=== PATIENT | male | born 1975 | race Caucasian/White ===

== ENCOUNTER 2016-09-29 12:27 | Inpatient (IN) | payer OTHER ==
[~2016-09-29] VITALS: Ht 177.8 cm; Wt 70.4 kg
--- NOTE | ~2016-09-29 | EKG ---
[place], [place] ELECTROCARDIOGRAM REPORT NAME: VINI BAXTER UNIT #: [id number] ROOM: 528 DOCTOR: HILDA BULLARD MD BIRTHDATE: [birth year] DOS: 09/29/2016 TIME: 2105. FINDINGS: 1. Sinus rhythm. 2. Normal electrocardiogram. HILDA BULLARD MD CM:EKGRPT:ELECTROCARDIOGRAM REPORT [id number] HILDA BULLARD MD
[~2016-09-29 12:27] MED LIST: ATARAX,VISTARIL50 MG PO; KROGER NIC21 MG/24 H T; METHOCARBAMOL750 M1 PO; ONDANSETRON HYDR4 M1 PO; THERA TABS1 TAB PO; TRAZODONE50 MG PO
[2016-09-29 13:11] VITALS: BP 129/79
[2016-09-29 15:11] LABS: BASO % 0.5 % (0.0-1.0); EOS # 0.3 10*3/uL (0.0-0.4); EOS % 4.6 % (1.0-4.0); HEMATOCRIT 49.6 % (42.0-52.0); HEMOGLOBIN 16.8 g/dl (14.0-18.0); LYMPH # 2.4 10*3/uL (1.3-4.4); LYMPH % 32.8 % (27.0-41.0); MEAN CELL VOLUME 92.7 fl (80.0-94.0); MEAN CORPUSCULAR HGB 31.4 pg (27.0-31.0); MEAN CORPUSCULAR HGB CONC 33.9 g/dl (33.0-37.0); MEAN PLATELET VOLUME 9.9 fl (9.6-12.3); MONO # 0.5 10*3/uL (0.1-1.0); MONO % 6.4 % (3.0-9.0); NEUT # 4.1 10*3/uL (2.3-7.9); NEUT % 55.4 % (47.0-73.0); PLATELET COUNT AUTOMATED 162 10*3/uL (130-400); RED BLOOD COUNT 5.35 10*6/uL (4.50-5.90); RED CELL DISTRI WIDTH 13.5 % (0-14.5); WHITE BLOOD COUNT 7.5 10*3/uL (4.8-10.8)
[2016-09-29 15:23] LABS: PROTHROMBIN TIME 11.1 SECONDS (9.0-12.4)
[2016-09-29 15:25] LABS: ALBUMIN 3.3 gm/dl (3.1-4.5); ALKALINE PHOSPHATASE 96 U/L (45-117); BILIRUBIN, TOTAL 0.7 mg/dl (0.2-1.0); BUN 17 mg/dl (7-24); CARBON DIOXIDE 31 mmol/L (21-32); CHLORIDE 102 mmol/L (98-107); EST GLOM FILT AFRICAN AMERICAN > 60 ml/min; GLUCOSE 159 mg/dL (65-99); POTASSIUM 4.5 mmol/L (3.5-5.1); SGOT/AST 167 IU/L (3-35); SGPT/ALT 342 U/L (12-78); SODIUM 137 mmol/L (136-145)
[2016-09-29 15:50] LABS: BILIRUBIN NEGATIVE (NEGATIVE); BLOOD TRACE-INTACT (NEGATIVE); CLARITY SL CLOUDY (CLEAR); COLOR YELLOW (YELLOW); GLUCOSE NEGATIVE (NEGATIVE); KETONE TRACE (NEGATIVE); LEUKO ESTERASE NEGATIVE (NEGATIVE); NITRITE NEGATIVE (NEGATIVE); PROTEIN 2+ (NEGATIVE); SPECIFIC GRAVITY >= 1.030 (1.005-1.030); UROBILINOGEN 0.2 E.U./dl (0.2-1.0)
[2016-09-29 15:57] LABS: WBC 0-2 wbc/hpf (0-5)
[2016-09-29 15:58] LABS: BACTERIA 2+; EPITHELIAL CELLS 0-2; URINE REFLEX COMMENT YES (NO)
[2016-09-29 16:00] VITALS: BP 118/63
[2016-09-29 16:02] LABS: URINE COCAINE > 300 (300ng/ml)
[2016-09-29 16:10] LABS: URINE AMPHETAMINES < 1000 (1000ng/ml); URINE BARBITURATES < 200 (200ng/ml)
[2016-09-29 20:00] VITALS: BP 120/55
[2016-09-30] VITALS: BP 112/71
[2016-09-30 04:00] VITALS: BP 118/78
[2016-09-30 08:00] VITALS: BP 101/59
[2016-09-30 12:00] VITALS: BP 108/47
[2016-09-30 16:00] VITALS: BP 115/67
[2016-09-30 20:19] VITALS: BP 110/54
[2016-10-01] VITALS: BP 106/64; BP 127/75
[2016-10-01 08:00] VITALS: BP 106/58
[2016-10-01 12:00] VITALS: BP 130/81
[2016-10-01 16:00] VITALS: BP 125/72
[2016-10-01 20:00] VITALS: BP 130/82
[2016-10-02] VITALS: BP 115/57; BP 127/75
[2016-10-02 06:59] LABS: BASO # 0.1 10*3/uL (0.0-0.1); BASO % 1.4 % (0.0-1.0); EOS # 0.3 10*3/uL (0.0-0.4); EOS % 6.5 % (1.0-4.0); HEMATOCRIT 49.7 % (42.0-52.0); HEMOGLOBIN 16.8 g/dl (14.0-18.0); LYMPH # 2.2 10*3/uL (1.3-4.4); MEAN CELL VOLUME 91.7 fl (80.0-94.0); MEAN CORPUSCULAR HGB CONC 33.8 g/dl (33.0-37.0); MEAN PLATELET VOLUME 10.5 fl (9.6-12.3); MONO # 0.8 10*3/uL (0.1-1.0); MONO % 15.4 % (3.0-9.0); NEUT # 1.6 10*3/uL (2.3-7.9); NEUT % 32.5 % (47.0-73.0); PLATELET COUNT AUTOMATED 144 10*3/uL (130-400); RED BLOOD COUNT 5.42 10*6/uL (4.50-5.90); RED CELL DISTRI WIDTH 13.2 % (0-14.5)
[2016-10-02 07:34] LABS: EST GLOM FILT AFRICAN AMERICAN > 60 ml/min
[2016-10-02 08:00] VITALS: BP 130/74
[2016-10-02] MEDS ORDERED: CARBIDOPA/LEVOD1 TA1 PO (09:36)
[2016-10-02] MEDS ORDERED: ATARAX,VISTARIL50 MG PO (09:36)
[2016-10-02] MEDS ORDERED: ZOFRAN 4 MG ED2 TAB PO (09:36)
== END 2016-10-02 11:31 | disposition home or self-care (01) | DRG 897 ==
LOC: 5E 12:27
PROVIDERS: Internal Medicine Hospice and Palliative Medicine
DX: F11.23 Opioid dependence with withdrawal (principal); E44.0 Moderate protein-calorie malnutrition; F41.9 Anxiety disorder, unspecified; R73.9 Hyperglycemia, unspecified; B18.2 Chronic viral hepatitis C; F17.210 Nicotine dependence, cigarettes, uncomplicated; F14.10 Cocaine abuse, uncomplicated; G25.81 Restless legs syndrome; Z71.6 Tobacco abuse counseling; Z83.3 Family history of diabetes mellitus; Z80.1 Family history of malignant neoplasm of trachea, bronchus and lung; Z68.22 Body mass index [BMI] 22.0-22.9, adult

== ENCOUNTER 2019-07-21 13:41 | Inpatient (IN) | payer OTHER ==
[~2019-07-21] VITALS: Ht 177.8 cm; Wt 65.1 kg
[~2019-07-21 13:41] MED LIST changes: +CARBIDOPA/LEVOD1 TA1 PO; +ZOFRAN 4 MG ED2 TAB PO
--- NOTE | 2019-07-21 14:00 | NUR ---
44 year old MALE admitted to room # 530 for stabilization. Reports an addiction to IV HEROIN last used 24 hours prior to admission. Compliant with admission procedure. Patient denies any anxiety, but is unable to sit still, taps toes to floor continuously, looks about room, unable to focus eyes on nurse during interview. See assessment forms for additional information about patient status.
--- NOTE | 2019-07-21 14:22 | NUR ---
PATIENT MEETS [facility]. CINA=18. PATIENT WANTS TO FOLLOW UP WITH A [facility] CLINIC AT [facility] IN [place]. [place] STAFF WILL SET UP TRANSPORTATION THROUGH HIS INSURANCE ON Wednesday. PATEL RODRIGUEZ B.A. HUMAN RESOURCES COMPLIANCE MANAGER
[2019-07-21 14:44] VITALS: BP 137/98
--- NOTE | 2019-07-21 15:21 | NUR ---
C/O NICOTINE WITHDRAWAL, LEG CRAMPS AND ANXIETY. GIVEN A NICOTINE PATCH, ROBAXIN AND VISTARIL AT THIS TIME. WILL CONT TO MONITOR. CALL LIGHT IN REACH.
[2019-07-21 15:46] LABS: URINE AMPHETAMINES > 1000 (1000ng/ml); URINE BARBITURATES < 200 (200ng/ml); URINE BENZODIAZEPINES < 200 (200ng/ml); URINE CANNABINOIDS (THC) < 50 (50ng/ml); URINE COCAINE > 300 (300ng/ml); URINE METHADONE < 300 (300ng/ml); URINE OPIATES < 300 (300ng/ml)
[2019-07-21 15:51] LABS: URINE PHENCYCLIDINE < 25 (25ng/ml)
[2019-07-21 15:56] LABS: BILIRUBIN NEGATIVE (NEGATIVE); BLOOD NEGATIVE (NEGATIVE); CLARITY CLEAR (CLEAR); COLOR YELLOW (YELLOW); GLUCOSE NEGATIVE (NEGATIVE); KETONE NEGATIVE (NEGATIVE); LEUKO ESTERASE NEGATIVE (NEGATIVE); NITRITE NEGATIVE (NEGATIVE); UROBILINOGEN 0.2 E.U./dl (0.2-1.0)
[2019-07-21 15:57] LABS: BASO % 0.6 % (0.0-1.0); EOS # 0.1 10*3/uL (0.0-0.4); EOS % 1.7 % (1.0-4.0); HEMATOCRIT 45.9 % (42.0-52.0); HEMOGLOBIN 15.1 g/dl (14.0-18.0); LYMPH # 1.7 10*3/uL (1.3-4.4); LYMPH % 26.3 % (27.0-41.0); MEAN CELL VOLUME 89.8 fl (80.0-94.0); MEAN CORPUSCULAR HGB 29.5 pg (27.0-31.0); MEAN CORPUSCULAR HGB CONC 32.9 g/dl (33.0-37.0); MEAN PLATELET VOLUME 10.2 fl (9.6-12.3); MONO # 0.3 10*3/uL (0.1-1.0); MONO % 4.5 % (3.0-9.0); NEUT # 4.3 10*3/uL (2.3-7.9); NEUT % 66.7 % (47.0-73.0); PLATELET COUNT AUTOMATED 148 10*3/uL (130-400); RED BLOOD COUNT 5.11 10*6/uL (4.50-5.90); RED CELL DISTRI WIDTH 14.6 % (0-14.5); WHITE BLOOD COUNT 6.5 10*3/uL (4.8-10.8)
[2019-07-21 15:57] LABS: EPITHELIAL CELLS 0-2
[2019-07-21 16:00] VITALS: BP 128/72
[2019-07-21 16:15] LABS: ALBUMIN 3.2 gm/dl (3.1-4.5); ALKALINE PHOSPHATASE 111 U/L (45-117); BUN 20 mg/dl (7-24); CHLORIDE 107 mmol/L (98-107); CREATININE 1.03 mg/dL (0.70-1.30); POTASSIUM 5.3 mmol/L (3.5-5.1); SGOT/AST 135 IU/L (3-35); SGPT/ALT 166 U/L (12-78); SODIUM 138 mmol/L (136-145); TOTAL PROTEIN 8.3 gm/dL (6.4-8.2)
[2019-07-21 16:21] LABS: ETHYL ALCOHOL < 3.0 mg/dl (<3)
--- NOTE | 2019-07-21 16:41 | NUR ---
STATES LEGS FEEL RESTLESS. REQUIP GIVEN AT THIS TIME. WILL CONT TO MONITOR. CALL LIGHT IN REACH.
--- NOTE | 2019-07-21 17:41 | NUR ---
REQUIP EFF. WILL CONT TO MONITOR. CALL LIGHT IN REACH.
[2019-07-21 20:00] VITALS: BP 141/88
--- NOTE | 2019-07-21 20:10 | NUR ---
RECEIVED PATIENT FROM Del D/T PATIENT BEING MONITORED. RECEIVED REPORT FROM CHENTE MILLER RN. PATIENT IN ROOM AT THIS TIME EATING SNACKS. NO SIGNS OR SYMPTOMS OF DISTRESS NOTED.
--- NOTE | 2019-07-21 20:13 | NUR ---
PATIENT TRANSFERED TO ROOM 421. REPORT GIVEN TO CARLOS KING.
--- NOTE | 2019-07-21 20:44 | NUR ---
NICOTROL INHALER GIVEN TO PATIENT FOR SMOKING CRAVINGS.
--- NOTE | 2019-07-21 21:16 | NUR ---
PATIENT MEDICATED WITH VISTARIL FOR ANXIOUSNESS AND INSOMNIA. WILL CONTINUE TO MONITOR.
--- NOTE | 2019-07-21 23:08 | NUR ---
PATIENT MEDICATED WITH A ONE TIME DOSE OF RESTORIL FOR COMPLAINTS OF INSOMNIA D/T VISTARIL BEING INEFFECTIVE PER PATIENT. WILL MONITOR FOR EFFECTIVENESS.
[2019-07-22] VITALS: BP 137/82
--- NOTE | 2019-07-22 03:42 | NUR ---
DR. NEIL APPROVED FOR PATIENT TO REMOVE MONITOR LONG ENOUGH TO GET A SHOWER.
[2019-07-22 08:00] VITALS: BP 126/76
[2019-07-22 16:00] VITALS: BP 110/68
[2019-07-22 20:00] VITALS: BP 116/60
--- NOTE | 2019-07-22 20:30 | NUR ---
PT AT THIS TIME STATED THAT HE HAD AN ABSCESS ON HIS ARM. STATED THAT IT APPEARED THIS MORNING AND IT FEELS REALLY TIGHT AND HE JUST WANTS IT CUT OPEN. DR. ROSARIO MADE AWARE. DR. ROSARIO HAD PATIENT SIGN CONSENT FORM TO HAVE ABSCESS LANCED. DRESSING APPLIED TO SITE AFTER LANCED.
--- NOTE | 2019-07-22 21:35 | NUR ---
PRN MOTRIN/REQUIP/BENADRYL GIVEN FOR PT COMPLAINTS OF PAIN AT SITE OF I + D, RESTLESS LEGS, AND SLEEPLESSNESS. CALL LIGHT WITHIN REACH, WILL MONITOR
--- NOTE | 2019-07-22 23:03 | NUR ---
PRN VISTARIL AND ROBAXIN GIVEN FOR PT COMPLAINTS OF MUSCLE ACHES AND ANXIETY. CALL LIGHT WITHIN REACH, WILL MONITOR
[2019-07-23] VITALS: BP 117/65
--- NOTE | 2019-07-23 | NUR ---
PRN MEDICATION APPEARS EFFECTIVE, PT SLEEPING
--- NOTE | 2019-07-23 00:27 | NUR ---
DR. ROSARIO STATED HE WOULD PUT WOUND CARE ORDERS IN
--- NOTE | 2019-07-23 02:21 | NUR ---
PATIENT SLEEPING, NO DISTRESS NOTED. CALL LIGHT WITHIN REACH, WILL MONITOR
--- NOTE | 2019-07-23 06:26 | NUR ---
NO COMPLAINTS AT THIS TIME. PATIENT RESTING IN BED. DENIES ANY NEEDS. WILL MONITOR
[2019-07-23 06:30] LABS: BASO # 0.1 10*3/uL (0.0-0.1); BASO % 0.5 % (0.0-1.0); EOS # 0.2 10*3/uL (0.0-0.4); EOS % 1.5 % (1.0-4.0); HEMOGLOBIN 14.7 g/dl (14.0-18.0); LYMPH # 2.9 10*3/uL (1.3-4.4); LYMPH % 29.1 % (27.0-41.0); MEAN CELL VOLUME 88.2 fl (80.0-94.0); MEAN CORPUSCULAR HGB 28.8 pg (27.0-31.0); MEAN CORPUSCULAR HGB CONC 32.7 g/dl (33.0-37.0); MEAN PLATELET VOLUME 10.1 fl (9.6-12.3); MONO # 0.8 10*3/uL (0.1-1.0); MONO % 8.4 % (3.0-9.0); NEUT % 60.2 % (47.0-73.0); PLATELET COUNT AUTOMATED 179 10*3/uL (130-400); RED CELL DISTRI WIDTH 14.9 % (0-14.5)
[2019-07-23 06:33] LABS: BUN 16 mg/dl (7-24); CHLORIDE 109 mmol/L (98-107); CREATININE 1.01 mg/dL (0.70-1.30); SODIUM 140 mmol/L (136-145)
[2019-07-23 06:34] LABS: POTASSIUM 4.2 mmol/L (3.5-5.1)
[2019-07-23 08:00] VITALS: BP 130/80
--- NOTE | 2019-07-23 08:00 | NUR ---
Patient resting quietly with no c/o discomfort. Respirations easy and regular. Vital signs stable. No overt distress. TIP YE
[2019-07-23 16:00] VITALS: BP 111/68
--- NOTE | 2019-07-23 19:32 | NUR ---
patient resting in bed watching tv. denies any needs at this time. bed in lowest position, call light in reach
--- NOTE | 2019-07-23 23:42 | NUR ---
MEDICATED WITH PRN MEDICATION FOR WITHDRAWAL SYMPTOMS. WILL MONITOR
[2019-07-24] VITALS: BP 109/65
--- NOTE | 2019-07-24 02:38 | NUR ---
24 HR chart check completed.
--- NOTE | 2019-07-24 06:00 | NUR ---
VINI BAXTER [id number] Please refer to the physician's history and physical for past medical history, comorbid conditions, and allergies. Diagnosis: F11.23 OPIATE WITHDRAWAL Ryley Score: 23,LOW OR NO RISK WOUND DESCRIPTIONS: Wound Number: 1 Location of the wound: RIGHT FOREARM Type of wound: ABSCESS Thickness: Full Size: 0.9cm x 0.7cm x 0.6cm Tunneling: none Undermining: none Sinus Tract: none Presence of Exudate: Serosanguineous Amount: Moderate Color: Yellow, red Odor: None Periwound Skin Appearance: Firmness Wound edges: approximated Pain (associated with wound): tender to touch How does patient state this happened? pt stated this just appeared yesterday. Surface the patient is resting on: Isoflex SKIN PREVENTION RECOMMENDATION: 1. Pressure redistribution support surface as appropriate 2. Elevate heels 3. Remove boots/TEDS every shift and reapply 4. Head of bed 30 degrees as tolerated 5. Assess nutrition and hydration 6. Manage moisture 7. Avoid the use of containment devices while in bed 8. Use absorptive products on surfaces limit layers of linens on bed 9. Turn and reposition every 1-2 hours in bed and every 1 hour in chair as tolerated 10. Weight shifts every 15 minutes while up in chair 11. Offloading with pillows or device to keep heels elevated off bed 12. Monitor skin at least every shift 13. Inspect under medical devices twice a day WOUND TREATMENT RECOMMENDATIONS: Full thickness guidelines: Cleanse right forearm with nss and apply sureprep around the wound lightly pack with maxorb rope every 2 days and prn for soiling. Patient is requesting follow up at [facility] which is out of [place] or something near there for follow up wound care in outpatient setting.
[2019-07-24 08:00] VITALS: BP 118/80
--- NOTE | 2019-07-24 08:10 | NUR ---
PT RESTING IN BED. RESP-EASY AND REGULAR. NO C/O AT THIS TIME. TOLERATED ROUTINE MED WITH NO PROBLEM. CALL LIGHT IN REACH. SEE SHIFT ASSESSMENT.
--- NOTE | 2019-07-24 10:25 | NUR ---
Nutritional Support Services Note: Pt dx of opiate withdrawal. Wound noted to right forerarm/abscess. Appetite is good for meals, he is eating 100% of all meals. Regular diet as ordered. Snacks at HS and as desired. No nutrition intervention needed at this time. Will follow. Ana Luisa Selby Rdn Ld
[2019-07-24] MEDS ORDERED: DOXYCYCLINE MO100 M1 PO (10:38)
[2019-07-24] MEDS ORDERED: AUGMENTIN 875-875 MG PO (10:38)
--- NOTE | 2019-07-24 10:55 | NUR ---
Discharge instructions reviewed with patient/family. Patient receptive and verbalizes understanding. Follow-up care arranged. Written instructions given to patient/family. PT REFUSED TO HAVE DRESSING TO RIGHT ARM TAKEN OFF AND REFUSED PICTURES. HE STATES THEY JUST DRESSED IT. WAITING FOR RIDE. KANE VALLES
[2019-07-24 11:33] VITALS: BP 96/64
--- NOTE | 2019-07-24 15:15 | NUR ---
PT ESCORTED FOR DISCHARGE VIA WHEELCHAIR WAITING IN [facility] ON 1ST FLOOR FOR RIDE.
== END 2019-07-24 15:15 | disposition home or self-care (01) | DRG 773 ==
LOC: 5E 13:41 → 4E 19:15 → 5E 07-23 13:59
PROVIDERS: Family Medicine; ADMIT Internal Medicine
PROC: 0H9EXZZ Drainage of Left Lower Arm Skin, External Approach (ICD-10-PCS; principal; 2019-07-22)
DX: F11.23 Opioid dependence with withdrawal (principal); F41.9 Anxiety disorder, unspecified; F19.10 Other psychoactive substance abuse, uncomplicated; F17.213 Nicotine dependence, cigarettes, with withdrawal; R74.0 Nonspecific elevation of levels of transaminase and lactic acid dehydrogenase [LDH]; F17.210 Nicotine dependence, cigarettes, uncomplicated; B19.20 Unspecified viral hepatitis C without hepatic coma; B18.2 Chronic viral hepatitis C; L02.512 Cutaneous abscess of left hand; Z83.3 Family history of diabetes mellitus; Z71.6 Tobacco abuse counseling; Z80.1 Family history of malignant neoplasm of trachea, bronchus and lung